=== PATIENT | female | born 1985 | race Caucasian/White ===

== ENCOUNTER 2021-08-29 21:21 | Emergency (ER) | payer OTHER ==
[2021-08-29 21:27] VITALS: BP 148/87; PULSE 76; TEMP 98.6; BMI 39.9
[2021-08-29] MEDS ORDERED: IBUPROFEN 600 MG TABLET (FP) PO ONE ×2 (23:28→23:35)
[2021-08-29] MEDS ORDERED: CYCLOBENZAPRINE HCL 10 MG TABLET (FP) ONE (23:40)
[2021-08-30] MEDS ORDERED: CYCLOBENZAPRINE HCL 10 MG TABLET (FP) PO ONE (00:23)
[2021-08-30] MEDS ORDERED: CYCLOBENZAPRINE HCL 5 MG TABLET PO ONE (23:29)
== END 2021-08-30 00:13 | disposition home or self-care (01) ==
LOC: JER 21:21 → JERFT 21:21
DX: S00.03XA Contusion of scalp, initial encounter (principal); Y04.0XXA Assault by unarmed brawl or fight, initial encounter
CPT/HCPCS: 99283-25

== ENCOUNTER 2022-11-05 16:36 | Emergency (ER) | payer OTHER ==
[2022-11-05 17:09] VITALS: RESP 18; BMI 44.4
[2022-11-05] MEDS ORDERED: ACETAMINOPHEN 1000 MG/100 ML BAG IVPB ONE (19:06)
[2022-11-05] MEDS ORDERED: SODIUM CHLORIDE 0.9% 500 ML INFUS.BAG IV ONE (19:06)
[2022-11-05] MEDS ORDERED: ACETAMINOPHEN INJECTION 100 ML IVPB ONE (19:57)
[2022-11-05 20:28] LABS: BASO % 0.8 % (0-2.0); EOS % 4.6 % (0-4.5); HEMATOCRIT 39.4 % (32.4-45.2); LYMPH % 27.4 % (8-40); MCH 28.2 pg (25.7-33.7); MCHC 33.1 g/dl (32.0-36.0); MEAN CELL VOLUME 85.3 fl (80-96); MEAN PLT VOLUME 8.1 fl (7.5-11.1); NEUT % 60.2 % (42.8-82.8); PLATELET COUNT 325 10^3/uL (134-434); RBC 4.61 M/mm3 (3.60-5.2); RDW 14.6 % (11.6-15.6); WHITE BLOOD COUNT 7.9 K/mm3 (4.0-10.0)
[2022-11-05 20:29] LABS: PH,URINE 5.5 (5.0-8.0); URINE APPEARANCE CLEAR; URINE BILIRUBIN NEGATIVE (NEGATIVE); URINE COLOR YELLOW; URINE GLUCOSE (UA) NEGATIVE (NEGATIVE); URINE KETONE NEGATIVE (NEGATIVE); URINE LEUK ESTERASE NEGATIVE (NEGATIVE); URINE NITRITE NEGATIVE (NEGATIVE); URINE PROTEIN NEGATIVE (NEGATIVE); URINE UROBILINOGEN 0.2 mg/dL (0.2-1.0)
[2022-11-05 20:34] LABS: INR 1.05 (0.83-1.09); PROTHROMBIN TIME (PATIENT) 12.1 SEC (9.7-13.0)
[2022-11-05 20:37] LABS: ACTIVATED PTT 36.5 SECONDS (25.2-36.5)
[2022-11-05 20:50] LABS: CALCIUM 9.3 mg/dL (8.5-10.1)
[2022-11-05 20:51] LABS: ALBUMIN 3.8 g/dl (3.4-5.0); BLOOD UREA NITROGEN 9.1 mg/dL (7-18)
[2022-11-05 20:54] LABS: CREATININE 0.8 mg/dL (0.55-1.3)
[2022-11-05 20:55] LABS: BILIRUBIN,TOTAL 0.5 mg/dL (0.2-1); TOT PROT 7.8 g/dl (6.4-8.2)
[2022-11-06 02:10] VITALS: BP 126/80; PULSE 85; TEMP 98.6
== END 2022-11-06 02:17 | disposition home or self-care (01) ==
LOC: JER 16:36
PROC: 3E033GC Introduction of Other Therapeutic Substance into Peripheral Vein, Percutaneous Approach (ICD-10-PCS; principal; 2022-11-05)
DX: K57.92 Diverticulitis of intestine, part unspecified, without perforation or abscess without bleeding (principal)
CPT/HCPCS: 36415; 74177-TC; 76830-TC; 80053; 81003; 83690; 84484; 84703; 85025; 85610; 85730; 86850; 86900; 86901; 87086; 93005; 93010; 99285-25